=== PATIENT | male | born 1970 | race Hispanic/Latino ===

== ENCOUNTER 2019-05-18 11:39 | Emergency (ER) | payer SELFPAY ==
--- NOTE | 2019-05-18 11:44 | Emergency Department Report ---
Blank Doc - Documentation Documentation: 48-year-old male that presents with URI symptoms. This initial assessment/diagnostic orders/clinical plan/treatment(s) is/are subject to change based on patient's health status, clinical progression and re- assessment by fellow clinical providers in the ED. Further treatment and workup at subsequent clinical providers discretion. Patient/guardians urged not to elope from the ED as their condition may be serious if not clinically assessed and managed. Initial orders include: 1- Patient sent to [facility] for further evaluation and treatment 2- xray
--- NOTE | 2019-05-18 12:09 | XRay Report ---
CHEST 2 VIEWS INDICATION / CLINICAL INFORMATION: Cough for 6 days. COMPARISON: None available. FINDINGS: SUPPORT DEVICES: None. HEART / MEDIASTINUM: The heart size and pulmonary vasculature are normal. LUNGS / PLEURA: No significant pulmonary or pleural abnormality. No pneumothorax. ADDITIONAL FINDINGS: No significant additional findings. IMPRESSION: No acute findings. There is no evidence of pneumonia. Signer Name: Gregorio Lombardi MD Signed: 05/18/2019 12:05 PM Workstation Name: [id number]
[2019-05-18] MEDS ORDERED: DECADRON IM ONE (12:14)
[2019-05-18] MEDS ORDERED: TRIMOX PO ONE (12:16)
[2019-05-18] MEDS ORDERED: IBUPROFEN PO ONE (12:16)
--- NOTE | 2019-05-18 12:19 | Emergency Department Report ---
Minor Respiratory - HPI Chief Complaint: Upper Respiratory Infection Stated Complaint: FLU SX Time Seen by Provider: 05/18/19 11:43 Duration: 3 Days Pain Location: Facial, Throat, Ear, Chest Severity: mild Minor Respiratory: Yes Rhinorrhea, Yes Sore Throat, Yes Able to Tolerate Fluids, Yes Cough, No Ear Pain, No Sick Contacts, No Hemoptysis, No Chest Pain, No Shortness of Breath, No Fever Other History: 48 YO WITH COLD COUGH CONGESTION. DOES NOT SMOKE. NO FEVER. GREEN SPUTUM. OTC MEDS NOT HELPING AT HOME. NO CP OR SOB. AMBULATORY. PT STATES WHEN ASKED ABOUT HR THAT THIS IS NORMAL FOR HIM. VALIDATED IN CHART. HE STATES ITS BEEN 120-130 BPM NEARLY EVERYTIME HE GOES TO [facility] SINCE FAR BACK HE CAN RECALL. ED Review of Systems ROS: Stated complaint: FLU SX Other details as noted in HPI Comment: All other systems reviewed and negative ED Past Medical Hx - Past Medical History Previous Medical History?: Yes Hx Hypertension: Yes Hx Heart Attack/AMI: No Hx Congestive Heart Failure: No Hx Diabetes: Yes Hx GERD: Yes Hx Renal Disease: No Hx Seizures: No Hx Asthma: No Hx COPD: No Additional medical history: SINUS TACHYCARDIA - Surgical History Past Surgical History?: Yes Additional Surgical History: kidney stenT/ AMPUTEE - Family History Family history: no significant - Social History Smoking Status: Never Smoker Substance Use Type: None - Medications Home Medications: Home Medications Medication Instructions Recorded Confirmed Last Taken Type Acetaminophen [Acetaminophen TAB] 650 mg PO Q4H PRN #1 tablet 12/26/16 Unknown Rx Gabapentin [Neurontin] 100 mg PO QPM #30 capsule 12/26/16 Unknown Rx Insulin NPH/Regular [NovoLIN 70/30] 18 unit SUB-Q BIDDIAB 30 Days 12/26/16 Unknown Rx units Zolpidem [Ambien] 5 mg PO QHS PRN #30 tablet 12/26/16 Unknown Rx oxyCODONE [roxiCODONE] 5 mg PO Q4H PRN #45 tablet 12/26/16 Unknown Rx Amoxicillin [Trimox CAP] 500 mg PO BID #20 capsule 05/18/19 Unknown Rx predniSONE [Deltasone] 20 mg PO DAILY #5 tablet 05/18/19 Unknown Rx Minor Respiratory Exam - Exam General: Vital signs noted. No distress. Alert and acting appropriately. HEENT: Yes Pharyngeal Erythema, Yes Moist Mucous Membranes, Yes Frontal Tenderness, Yes Maxillary Tenderness, No Pharyngeal Exudates, No Rhinorrhea, No Conjuctival Injection Ear: Neither TM Bulge, Neither TM Erythema, Neither EAC Pain, Neither EAC Discharge Neck: Yes Supple, No Adenopathy Lungs: Yes Good Air Exchange, No Wheezes, No Ronchi Heart: Yes Regular (TACHY- BASELINE FOR PT, VALIDATED IN ER) Abdomen: No Tenderness, No Peritoneal Signs Skin: Yes Rash Neurologic: Alert and oriented, no deficits. Musculoskeletal: Unremarkable. ED Course Vital Signs 05/18/19 11:43 Temperature 98 F Pulse Rate 114 H Respiratory 18 Rate Blood Pressure 116/83 O2 Sat by Pulse 97 Oximetry ED Medical Decision Making - Radiology Data Radiology results: report reviewed, image reviewed - Medical Decision Making XRAY NEG FOR PNA VSS NO FEVER PT HAS DOCUMENTED TACHYCARDIA- NORMAL FOR PT NO CP NO SOB COUGH WITH FACIAL PAIN MEDICATED IN ER DISCUSSED WITH PT HE NEEDS TO FOLLOW UP WITH PCP DUE TO HIS DM HE HAS RECENTLY GOT DISABILITY AND HE HAS APPNT 10-1 AMBULATORY WITHOUT DIFFICULTY/ NO SOB OR CP DC HOME WITH DC PLAN OF CARE Vital Signs 05/18/19 11:43 Temperature 98 F Pulse Rate 114 H Respiratory 18 Rate Blood Pressure 116/83 O2 Sat by Pulse 97 Oximetry - Differential Diagnosis URTI Critical care attestation.: If time is entered above; I have spent that time in minutes in the direct care of this critically ill patient, excluding procedure time. ED Disposition Clinical Impression: URTI (acute upper respiratory infection), Sinusitis, Acute bronchitis, History of diabetes mellitus Disposition: DC-01 TO HOME OR SELFCARE Is pt being admited?: No Does the pt Need Aspirin: No Condition: Stable Instructions: Acute Bronchitis (ED) Additional Instructions: MEDS ORDERED FOLLOW UP WITH PCP REFERRAL BELOW HYDRATE WELL WITH WATER MOTRIN OR TYLENOL FOR PAIN OR FEVER Prescriptions: predniSONE [Deltasone] 20 mg PO DAILY #5 tablet Amoxicillin [Trimox CAP] 500 mg PO BID #20 capsule Referrals: KEYSHAWN PERKINS MD [Staff Physician] - 3-5 Days Time of Disposition: 12:18
[2019-05-18 12:49] VITALS: BP 120/78
== END 2019-05-18 12:47 | disposition home or self-care (01) ==
LOC: ED 11:39
DX: J06.9 Acute upper respiratory infection, unspecified (principal); J32.9 Chronic sinusitis, unspecified; J20.9 Acute bronchitis, unspecified; I10 Essential (primary) hypertension; E11.9 Type 2 diabetes mellitus without complications; Z79.4 Long term (current) use of insulin
CPT/HCPCS: 71046; 96372; 99283; J1100